=== PATIENT | female | born 1945 | race Caucasian/White ===

== ENCOUNTER 2017-06-18 15:54 | Emergency (ER) | payer OTHER, MEDICARE ==
[~2017-06-18] VITALS: Ht 157.5 cm; Wt 90.9 kg
[2017-06-18] MEDS ORDERED: ATORVASTATIN CA80 MG PO (18:03)
[2017-06-18] MEDS ORDERED: HYDROCHLOROTHIA25 MG PO (18:03)
[2017-06-18] MEDS ORDERED: ESOMEPRAZOLE MA40 MG PO (18:03)
[2017-06-18] MEDS ORDERED: TRAMADOL HCL50 MG PO (18:03)
[2017-06-18] MEDS ORDERED: CITALOPRAM HBR40 MG PO (18:03)
[2017-06-18 20:27] VITALS: BP 132/61
== END 2017-06-18 20:28 | disposition home or self-care (01) ==
LOC: EXP 15:54 → EME 15:54 → EXP 20:28
DX: M25.562 Pain in left knee (principal); Z88.6 Allergy status to analgesic agent; Z88.1 Allergy status to other antibiotic agents
CPT/HCPCS: 93971; 99281; 99283